=== PATIENT | female | born 1965 | race Caucasian/White ===

== ENCOUNTER → 2017-11-29 | Outpatient (CLI) | payer OTHER ==
[2017-11-29 13:02] LABS: ABSOLUTE BASOPHILS # (AUTO) 0.1 10^3/uL (0.0-0.2); ABSOLUTE EOSINOPHILS # (AUTO) 0.3 10^3/uL (0.0-0.6); ABSOLUTE LYMPHOCYTES (AUTO) 2.4 10^3/uL (0.5-4.7); ABSOLUTE MONOCYTES (AUTO) 0.5 10^3/uL (0.1-1.4); ABSOLUTE NEUT (AUTO) 5.7 10^3/uL (1.7-8.2); BASOPHILS % (AUTO) 0.7 % (0-2); EOSINOPHILS % (AUTO) 3.4 % (0-6); HEMATOCRIT 45.6 % (36.0-47.0); HEMOGLOBIN 15.4 g/dL (12.0-15.5); LYMPHOCYTES % (AUTO) 27.1 % (13-45); MEAN CORPUSCULAR HEMOGLOBIN 28.6 pg (27.0-33.4); MEAN CORPUSCULAR HGB CONC 33.8 g/dL (32.0-36.0); MEAN CORPUSCULAR VOLUME 85 fl (80-97); MONOCYTES % (AUTO) 5.2 % (3-13); PLATELET COUNT 172 10^3/uL (150-450); RED BLOOD COUNT 5.39 10^6/uL (3.72-5.28); SEGMENTED NEUTROPHILS % (AUTO) 63.6 % (42-78); TOTAL CELLS COUNTED % (AUTO) 100 %
[2017-11-29 13:21] LABS: ALANINE AMINOTRANSFERASE 43 U/L (9-52); ALBUMIN 3.9 g/dL (3.5-5.0); ALKALINE PHOSPHATASE 79 U/L (38-126); ANION GAP 10 (5-19); ASPARTATE AMINO TRANSFERASE 31 U/L (14-36); BILIRUBIN,DIRECT 0.2 mg/dL (0.0-0.4); BILIRUBIN,TOTAL 0.4 mg/dL (0.2-1.3); BLOOD UREA NITROGEN 11 mg/dL (7-20); CALCIUM 9.2 mg/dL (8.4-10.2); CARBON DIOXIDE 27 mmol/L (22-30); CHLORIDE 108 mmol/L (98-107); CREATINE KINASE 65 U/L (30-135); GLUCOSE 84 mg/dL (75-110); LIPASE 101.7 U/L (23-300); POTASSIUM 4.4 mmol/L (3.6-5.0); SODIUM 145.4 mmol/L (137-145); TOTAL PROTEIN 6.9 g/dL (6.3-8.2)
[2017-11-29 13:37] LABS: TROPONIN I < 0.012 ng/mL
== END ==
LOC: OD 12:10
PROVIDERS: ATTEND Nurse Practitioner Acute Care
DX: I10 Essential (primary) hypertension (principal); M54.5 Low back pain; R11.0 Nausea
CPT/HCPCS: 36415; 80053; 82550; 82553; 83690; 84484; 85025

== ENCOUNTER 2018-03-21 11:22 | Day surgery (SDC) | payer SELFPAY ==
[2018-03-21] MEDS ORDERED: ONDANSETRON HCL INJ/PF 4 MG/2 ML SDV ONE (12:00)
[2018-03-21] MEDS ORDERED: DIPHENHYDRAMINE HCL 50 MG/ML VIAL ONE (12:00)
[2018-03-21] MEDS ORDERED: NALOXONE HCL INJ/PF 0.4 MG/1 ML SDV ONE (12:00)
[2018-03-21] MEDS ORDERED: FLUMAZENIL INJ 0.5 MG/5 ML VIAL ONE (12:00)
[2018-03-21] MEDS ORDERED: GLUCAGON,HUMAN RECOMB 1 MG INJ ONE (12:01)
[2018-03-21] MEDS ORDERED: EPINEPHRINE INJ 1 MG/10 ML DISP.SYRIN ONE (12:01)
[2018-03-21] MEDS: MIDAZOLAM 2 MG/2 ML INJ ONE ×3 (12:18→12:23)
[2018-03-21] MEDS: FENTANYL CITRATE INJ/PF 100 MCG/2 ML AMPUL ONE ×2 (12:20→12:25)
--- NOTE | 2018-03-21 13:06 | Operative Report ---
Operative Report DATE OF SURGERY: 03/21/18 Operative Report: The risks, benefits and alternatives of the procedure including risks of bleeding, perforation requiring surgery are explained to the patient in detail and informed consent is obtained. Patient has taken back to the endoscopy suite and placed in the left, lateral decubital position. Timeout was called. Conscious sedation medications are provided. A rectal examination is done which did not reveal any masses, tears or fissures. An Olympus videoscope was inserted into the patient's rectum. The scope was then carefully advanced all the way to the cecum. The cecum was identified by the usual anatomical landmarks including the ileocecal valve as well as the appendiceal office. Photodocumentation is obtained. The scope was then sequentially pulled back via the various segments of the colon including the ascending colon, hepatic flexure, transverse colon, splenic flexure, descending colon and finally into the rectosigmoid portions of the colon. Retroflexion maneuvers performed. PREOPERATIVE DIAGNOSIS: Colorectal cancer screening POSTOPERATIVE DIAGNOSIS: Polyps noted in the ascending colon, hepatic flexure, transverse colon, and descending colon polyps which were removed via snare polypectomy. Internal hemorrhoids. 3 of the 4 polyps retrieved OPERATION: Colonoscopy with snare polypectomy SURGEON: KALINA YOO ANESTHESIA: Moderate Sedation - 6 mg of Versed, 125 mcg of fentanyl. Conscious sedation monitoring time 30 minutes. TISSUE REMOVED OR ALTERED: As noted above. COMPLICATIONS: None. ESTIMATED BLOOD LOSS: None. INTRAOPERATIVE FINDINGS: As noted above. PROCEDURE: Patient tolerated the procedure well. No immediate postprocedure complications are noted. Patient discharged in good condition. Discharge date 03/21/2018. Discharge diet: Regular. Discharge activity: Regular. 2-3 week follow-up to discuss findings. Patient is instructed call the office or proceed to the emergency room should there be any further problems or questions. Wait on the pathology. 3 year surveillance colonoscopy.
[2018-03-21 13:57] VITALS: BP 115/70
== END 2018-03-21 13:45 | disposition home or self-care (01) ==
LOC: END 11:22
PROVIDERS: ATTEND Internal Medicine Gastroenterology
DX: Z12.11 Encounter for screening for malignant neoplasm of colon (principal); D12.2 Benign neoplasm of ascending colon; D12.6 Benign neoplasm of colon, unspecified; D12.3 Benign neoplasm of transverse colon; K64.8 Other hemorrhoids; Z80.0 Family history of malignant neoplasm of digestive organs; I10 Essential (primary) hypertension; K21.9 Gastro-esophageal reflux disease without esophagitis; F17.210 Nicotine dependence, cigarettes, uncomplicated; Z79.899 Other long term (current) drug therapy; Z79.1 Long term (current) use of non-steroidal anti-inflammatories (NSAID)
CPT/HCPCS: 45385; 88305 ×2; J2250; J3010; J0171; J1200; J1610; J2310; J2405; J3490

== ENCOUNTER 2018-12-14 06:51 | Emergency (ER) | payer BC ==
--- NOTE | 2018-12-14 08:18 | RADIOLOGY REPORT (SQ) ---
EXAM DESCRIPTION: FOOT LEFT COMPLETE COMPLETED DATE/TIME: 12/14/2018 7:58 am REASON FOR STUDY: fourth toe pain secondary to injury COMPARISON: None. NUMBER OF VIEWS: Three views. TECHNIQUE: AP, lateral and oblique radiographic images acquired of the left foot. LIMITATIONS: None. FINDINGS: MINERALIZATION: Normal. BONES: Obliquely oriented fracture of the proximal aspect of the 4th proximal phalanx. No evidence o f intra-articular extension. Alignment is near anatomic. No additional fractures visualized. JOINTS: Mild midfoot degenerative change. No dislocation. SOFT TISSUES: Soft tissue swelling about the forefoot. OTHER: Superior and plantar calcaneal enthesophytes. IMPRESSION: Minimally displaced obliquely oriented fracture of the proximal aspect of the 4th proxim al phalanx. No intra-articular extension. TECHNICAL DOCUMENTATION: JOB ID: [id number] [employer]- All Rights Reserved Reading location - IP/workstation name: [email or web address]
--- NOTE | 2018-12-14 08:46 | ER Document Report ---
HPI - HPI Time Seen by Provider: 12/14/18 08:09 Pain Level: 4 Notes: Patient is a 53-year-old female with a history of hypertension who presents to the emergency department with a chief complaint of left toe pain. Patient states about 10 days ago she was cleaning her house when she moved a wooden table and stubbed her toe on the table leg. Patient states she has had some swelling to the left fourth toe. Patient has been darryl taping and using 800 mg ibuprofen with some relief. Patient sought care today to obtain an x-ray. Patient states she is able to ambulate although it does induce pain. She denies deformity. - EENT EENT: DENIES: Sore Throat, Ear Pain, Eye problems - NEURO Neurology: DENIES: Headache, Weakness, Vision blurred, Dizzinesss / Vertigo - CARDIOVASCULAR Cardiovascular: DENIES: Chest pain - RESPIRATORY Respiratory: DENIES: Trouble Breathing, Coughing - GASTROINTESTINAL Gastrointestinal: DENIES: Abdominal Pain, Black / Bloody Stools - URINARY Urinary: DENIES: Dysuria, Urgency, Frequency - REPRODUCTIVE Reproductive: DENIES: : - MUSCULOSKELETAL Musculoskeletal: REPORTS: Extremity pain - left fourth digit toe Past Medical History - General Information source: Patient - Social History Smoking Status: Unknown if Ever Smoked Frequency of alcohol use: None Drug Abuse: None Family History: Reviewed & Not Pertinent Patient has suicidal ideation: No Patient has homicidal ideation: No - Past Medical History Cardiac Medical History: Reports: Hx Hypertension Denies: Hx Coronary Artery Disease, Hx Heart Attack Pulmonary Medical History: Reports: None Denies: Hx Asthma, Hx Bronchitis, Hx COPD, Hx Pneumonia EENT Medical History: Reports: None Neurological Medical History: Reports: None. Denies: Hx Cerebrovascular Accident, Hx Seizures Endocrine Medical History: Reports: None Renal/ Medical History: Reports: None. Denies: Hx Peritoneal Dialysis Malignancy Medical History: Reports: None GI Medical History: Reports: None Musculoskeletal Medical History: Reports None, Denies Hx Arthritis Skin Medical History: Reports None Psychiatric Medical History: Reports: None Traumatic Medical History: Reports: None Infectious Medical History: Reports: None Surgical Hx: Negative Past Surgical History: Denies: Hx Hysterectomy - Immunizations Hx Diphtheria, Pertussis, Tetanus Vaccination: Yes Vertical Provider Document - CONSTITUTIONAL Notes: GENERAL: Well-appearing, well-nourished and in no acute distress. HEAD: Atraumatic, normocephalic. EYES: Pupils equal round and reactive to light, extraocular movements intact, sclera anicteric, conjunctiva are normal. ENT: TMs normal, nares patent, oropharynx clear without exudates. Moist mucous membranes. NECK: Normal range of motion, supple without lymphadenopathy or JVD. LUNGS: Breath sounds clear to auscultation bilaterally and equal. No wheezes rales or rhonchi. HEART: Regular rate and rhythm without murmurs, rubs or gallops. ABDOMEN: Soft, nontender, normoactive bowel sounds. No guarding, no rebound. No masses appreciated. BACK: No cervical, thoracic, lumbar midline tenderness. No saddle anesthesia, normal distal neurovascular exam. GENITOURINARY: Deferred. EXTREMITIES: Normal range of motion, no pitting or edema. No clubbing or cyanosis. Minimal swelling to top of left foot and left 4th digit, no bruising or obvious deformity. + flexion and extension with pain to left 4th toe, + 2 palpable dorsalis pedis pulse on left. NEUROLOGICAL: Cranial nerves II through XII grossly intact. Normal speech, normal gait. PSYCH: Normal mood, normal affect. SKIN: Warm, Dry, normal turgor, no rashes or lesions noted. - INFECTION CONTROL TRAVEL OUTSIDE OF THE [place] IN LAST 30 DAYS: No Course - Re-evaluation Re-evalutation: 12/14/18 09:05 [address]iscuss[address] results [address] Dr[address] Jose, agrees with plan to darryl tape toe and place in hard boot. Elevate extremity and limit use as much as possible while fracture heals. - Vital Signs Vital signs: Temp Pulse Resp BP Pulse Ox 98.3 F 92 18 143/96 H 95 12/14/18 06:54 12/14/18 06:54 12/14/18 06:54 12/14/18 06:54 12/14/18 06:54 Discharge - Discharge Clinical Impression: Toe fracture, left Qualifiers: Encounter type: initial encounter Toe: lesser toe Fracture type: closed Phalanx: proximal Fracture alignment: displaced Qualified Code(s): S92.512A - Displaced fracture of proximal phalanx of left lesser toe(s), initial encounter for closed fracture Condition: Stable Disposition: HOME, SELF-CARE Additional Instructions: Today you were seen in the emergency department for left foot pain. We did obtain an x-ray which showed a oblique fracture of the left fourth proximal metatarsal. The cure for this is darryl taping and a hard boot to the left foot. It can take some weeks for the fracture to heal. Keep the foot elevated. Seek medical attention for any discoloration, new numbness or tingling, or worsening foot discomfort. Continue to take Tylenol or ibuprofen as needed. Please follow-up with your primary care physician. Fractured Toe You have fractured your toe. Although this fracture doesn't need a cast or splint, emergency evaluation was needed to assess the straightness of the bones and joints. Reduction ("setting") is necessary for toe fractures which are crooked or twisted. A toe fracture will heal in about three weeks. Usually, the fractured toe is taped to the next toe. The second toe acts as a moving splint to protect the broken one. Ice and elevation help during the first 48 hours. You may need crutches at first if walking is painful. When you begin walking, be careful NOT to do things that hurt. If weight bearing is not comfortable within a few days, you may require a special shoe, walking boot, or cast. Call the doctor or return at once if severe swelling, severe pain, or numbness develop in the toe, or if you suspect you may have re-injured it. Darryl Taping Your toes have been taped together -- called "darryl taping." The good toe can act as a moving splint to protect the injured toe. You will probably need to keep the tape in place (replacing it when needed) for about three weeks. A firm shoe over the injured toes is usually a good idea. As a general rule, you shouldn't do anything which causes pain to your taped toes. Taping isn't absolute protection, so match your activity to your degree of healing. If you ever suspect that you have re-injured the toe, return for re-examination. Keep the tape dry. Constant wetness harms the skin. Some cotton between the toes may help if perspiration is a problem. Replace the tape as needed when it becomes loose, weak, or dirty. Replace the tape daily if you are sweating. If the toes swell, discolor, or become numb, loosen the tape. Return here if there are problems. Referrals: LINO HIGHTOWER, [facility] [Primary Care Provider] - Follow up as needed
[2018-12-14 09:17] VITALS: BP 149/93
== END 2018-12-14 09:16 | disposition home or self-care (01) ==
LOC: ER 06:51
DX: S92.512A Displaced fracture of proximal phalanx of left lesser toe(s), initial encounter for closed fracture (principal); M79.675 Pain in left toe(s); W22.03XA Walked into furniture, initial encounter; Y93.E9 Activity, other interior property and clothing maintenance; Y92.009 Unspecified place in unspecified non-institutional (private) residence as the place of occurrence of the external cause; I10 Essential (primary) hypertension
CPT/HCPCS: 99283

== ENCOUNTER 2018-12-20 07:38 | Emergency (ER) | payer BC ==
[2018-12-20 07:57] VITALS: BP 153/91
[2018-12-20] MEDS ORDERED: IBUPROFEN 800 MG TABLET PO ONE (08:08)
--- NOTE | 2018-12-20 08:37 | ER Document Report ---
HPI - HPI Patient complains to provider of: Right ankle pain Time Seen by Provider: 12/20/18 08:08 Onset: Just prior to arrival Onset/Duration: Sudden Severity: Severe Pain Level: 4 - Pain medication offered. Patient accepted Motrin. Reports Motrin usually helps her Context: This 53-year-old female presents to the emergency department with complaints of right ankle pain. Patient reports she stepped on a dog chew toy this morning and felt a tearing pain go from the back of her heel up her ankle. Denies previous history of injury to the ankle. Complains of severe pain with movement or touch. Associated Symptoms: None Exacerbated by: Movement, Walking Relieved by: Denies Similar symptoms previously: No Recently seen / treated by doctor: No - REPRODUCTIVE Reproductive: DENIES: : Past Medical History - General Information source: Patient - Social History Smoking Status: Current Every Day Smoker Cigarette use (# per day): Yes Frequency of alcohol use: Occasional Drug Abuse: None Occupation: base- office Family History: DM Patient has suicidal ideation: No Patient has homicidal ideation: No - Past Medical History Cardiac Medical History: Reports: Hx Hypertension Denies: Hx Coronary Artery Disease, Hx Heart Attack Pulmonary Medical History: Denies: Hx Asthma, Hx Bronchitis, Hx COPD, Hx Pneumonia Neurological Medical History: Denies: Hx Cerebrovascular Accident, Hx Seizures Renal/ Medical History: Denies: Hx Peritoneal Dialysis GI Medical History: Reports: Hx Gastroesophageal Reflux Disease Musculoskeletal Medical History: Denies Hx Arthritis Psychiatric Medical History: Reports: Hx Depression Surgical Hx: Negative Past Surgical History: Denies: Hx Hysterectomy - Immunizations Hx Diphtheria, Pertussis, Tetanus Vaccination: Yes Vertical Provider Document - CONSTITUTIONAL Agree With Documented VS: Yes Exam Limitations: No Limitations General Appearance: WD/WN, Mild Distress - winces when ankle palpated - INFECTION CONTROL TRAVEL OUTSIDE OF THE [place] IN LAST 30 DAYS: No - HEENT HEENT: Atraumatic, Normocephalic - NECK Neck: Supple - RESPIRATORY Respiratory: No Respiratory Distress - CARDIOVASCULAR Cardiovascular: Regular Rate - MUSCULOSKELETAL/EXTREMETIES Musculoskeletal/Extremeties: Tender - right ankle posterior ttp, no obvious deformity, no swelling/no ecchymosis, can flex/extend foot with c/o pain good cap refill, good pedal pulse - NEURO Level of Consciousness: Awake, Alert, Appropriate Motor/Sensory: No Motor Deficit - DERM Integumentary: Warm, Dry Adult Front & Back Diagram: 1 - c/o pain very ttp Course - Re-evaluation Re-evalutation: 12/20/18 09:09 Dr. Tate the radiologist is on the phone. Reports found shows the patient has had almost a full-thickness Achilles tendon tear. Advising MRI after discussing with orthopedic. Attempted to contact Dr. Tsai but he is in the OR. MRI ordered. 924-Dr. Tsai returned call. Updated on patient status. Reports patient can follow-up with him in the office tomorrow. 12/20/18 09:51 Patient updated on all results. Patient waiting for the MRI. She reports that she has a problem with claustrophobic. Ativan ordered. 12/20/18 MRI shows full-thickness tear right Achilles tendon 3 cm proximal to the calcaneal insertion. Patient was instructed on results of MRI. Patient reports that she is got in contact with Dr. Tsai's office and they will be make an appointment with Dr. Jovel for her. Dictation of this chart was performed using voice recognition software; therefore, there may be some unintended grammatical errors. - Vital Signs Vital signs: Temp Pulse Resp BP Pulse Ox 98.1 F 78 18 153/91 H 96 12/20/18 07:56 12/20/18 07:56 12/20/18 07:56 12/20/18 07:56 12/20/18 07:56 - Diagnostic Test Radiology reviewed: Image reviewed, Reports reviewed - EXAM DESCRIPTION: MRI RT LOWER EXTREMITY WITHOUT COMPLETED DATE/TIME: 12/20/2018 10:49 am REASON FOR STUDY: achilles tear eval COMPARISON: Achilles tendon ultrasound 12/20/2018 TECHNIQUE: Right ankle images acquired and stored on PACS. Multiplanar images include fat sensitive sequences as T1, fluid sensitive sequences as FST2/STIR, cartilage sensitive sequences as FSPD, and gradient echo sequences. LIMITATIONS: None. FINDINGS: There is a full-thickness Achilles tendon tear 3 cm proximal to the calcaneal attachment. This is best shown on sagittal image 9 and coronal images 23-25. The muscular tendinous junction is normal. The calcaneal attachment of the Achilles tendon is normal. BONE MARROW: No alteration of signal to suggest marrow replacement or edema. No occult fracture. No large osteophytes. EFFUSIONS: There is a small tibiotalar joint effusion, and a small subtalar joint effusion OSSEOUS ARTICULATIONS: Normal tibiotalar, subtalar, talonavicular and calcaneocuboid joints. TALAR DOME AND TIBIAL PLAFOND: Normal cartilage. No osteochondral defect. ACHILLES TENDON: Intact without partial or full-thickness tear. No adjacent bursal fluid or edema. TIBIALIS ANTERIOR TENDON: Intact without edema at the 1st MT attachment. TIBIALIS POSTERIOR TENDON: Normal morphology and no edema at the navicular attachment. No tendon sheath fluid. FLEXOR HALLUCIS LONGUS AND FLEXOR DIGITORUM TENDONS: Normal morphology and no tendon sheath fluid. No edema of the os trigonum. PERONEUS LONGUS AND BREVIS TENDON: Normal morphology and no tendon sheath fluid. No subluxation. ATFL, CFL, PTFL: Intact. No thickening or signal alteration. No rosetta-ligamentous fluid. DELTOID LIGAMENT: Visualized components intact. TARSAL TUNNEL: No masses. No muscle atrophy. SINUS TARSI: No fluid. No reactive marrow edema or erosions. PLANTAR FASCIA: No signal alteration or tear. ADJACENT SOFT TISSUES: No masses. OTHER: No other significant finding. IMPRESSION: Full-thickness tear, right Achilles tendon 3 cm proximal to the calcaneal insertion EXAM DESCRIPTION: ANKLE RIGHT COMPLETE COMPLETED DATE/TIME: 12/20/2018 8:29 am REASON FOR STUDY: right posterior ankle, achilles eval COMPARISON: None. NUMBER OF VIEWS: Three views. TECHNIQUE: AP, lateral, and oblique radiographic images acquired of the right ankle. LIMITATIONS: None. FINDINGS: MINERALIZATION: Normal. BONES: No acute fracture or dislocation. Calcaneal spurs. JOINTS: No effusions. SOFT TISSUES: A few small calcific densities in the posterior soft tissues may be related to prior trauma. OTHER: No other significant finding. IMPRESSION: 1. No acute osseous findings. COMPLETED DATE/TIME: 12/20/2018 9:16 am REASON FOR STUDY: right posterior ankle, achilles eval COMPARISON: None. TECHNIQUE: Ultrasound of the bilateral Achilles tendons was performed by both myself as well as the technologist. Grayscale, cine loop and color flow images were obtained. LIMITATIONS: None. FINDINGS: On the right side, a full-thickness tear of Achilles tendon is present about 2 to 3 cm from the distal calcaneal attachment. There is disruption of the Achilles tendon with a full- thickness tear and proximal retraction. Gap in the tendon about 3 cm. The right sided musculotendinous junction of the Achilles tendon is intact. No soft tissue hematoma. Comparison imaging of the left Achilles tendon is normal IMPRESSION: Full-thickness right distal Achilles tendon tear, about 2 to 3 cm from the distal attachment. Procedures - Immobilization Right Ankle Pre-Proc Neuro Vasc Exam: Normal Immobilizer type: Posterior ankle - plantar flexion Performed by: NATTY bertrand Post-Proc Neuro Vasc Exam: Unchanged from pre-exam Alignment checked and good: Yes Discharge - Discharge Clinical Impression: Right ankle pain Qualifiers: Chronicity: acute Qualified Code(s): M25.571 - Pain in right ankle and joints of right foot Achilles rupture, right Qualifiers: Encounter type: initial encounter Qualified Code(s): S86.011A - Strain of right Achilles tendon, initial encounter Condition: Stable Disposition: HOME, SELF-CARE Instructions: Achilles Tendon Rupture ([facility]), Use of Crutches ([facility]), Ice & Elevation ([facility]), Splint Pending Casting ([facility]) Additional Instructions: *You have been evaluated for right ankle pain, Achilles tendon full-thickness tear *Maintain the splint, no weight bearing, use your crutches *Rest/Ice/Elevate *Follow up with orthopedics as scheduled *Take medication as prescribed *Return to ED for worsening condition, changes, needs Monitor your blood pressure. Your blood pressure was elevated today. This may be because you were anxious, in pain or because you need medication. It is important to follow up with your primary care provider for full evaluation. Prescriptions: Ibuprofen [Motrin 800 mg Tablet] 800 mg PO TID #30 tablet Forms: Elevated Blood Pressure, Return to Work Referrals: LINO HIGHTOWER, VICK-C [Primary Care Provider] - Follow up as needed DHAVAL CORNELIUS MD [ACTIVE STAFF] - 12/20/18 (contact office to confirm appointment)
--- NOTE | 2018-12-20 08:44 | RADIOLOGY REPORT (SQ) ---
EXAM DESCRIPTION: ANKLE RIGHT COMPLETE COMPLETED DATE/TIME: 12/20/2018 8:29 am REASON FOR STUDY: right posterior ankle, achilles eval COMPARISON: None. NUMBER OF VIEWS: Three views. TECHNIQUE: AP, lateral, and oblique radiographic images acquired of the right ankle. LIMITATIONS: None. FINDINGS: MINERALIZATION: Normal. BONES: No acute fracture or dislocation. Calcaneal spurs. JOINTS: No effusions. SOFT TISSUES: A few small calcific densities in the posterior soft tissues may be related to prior t rauma. OTHER: No other significant finding. IMPRESSION: 1. No acute osseous findings. TECHNICAL DOCUMENTATION: JOB ID: [id number] [employer]- All Rights Reserved Reading location - IP/workstation name: [email or web address]
--- NOTE | 2018-12-20 09:28 | RADIOLOGY REPORT (SQ) ---
EXAM DESCRIPTION: U/S EXTREMITY NONVASCULAR COMP COMPLETED DATE/TIME: 12/20/2018 9:16 am REASON FOR STUDY: right posterior ankle, achilles eval COMPARISON: None. TECHNIQUE: Ultrasound of the bilateral Achilles tendons was performed by both myself as well as the technologist. Grayscale, cine loop and color flow images were obtained. LIMITATIONS: None. FINDINGS: On the right side, a full-thickness tear of Achilles tendon is present about 2 to 3 cm fro m the distal calcaneal attachment. There is disruption of the Achilles tendon with a full-thickness tear and proximal retraction. Gap in the tendon about 3 cm. The right sided musculotendinous juncti on of the Achilles tendon is intact. No soft tissue hematoma. Comparison imaging of the left Achilles tendon is normal IMPRESSION: Full-thickness right distal Achilles tendon tear, about 2 to 3 cm from the distal attach ment. TECHNICAL DOCUMENTATION: JOB ID: [id number] [employer]- All Rights Reserved Reading location - IP/workstation name: [email or web address]
[2018-12-20] MEDS ORDERED: LORAZEPAM 0.5 MG TABLET PO ONE (09:51)
--- NOTE | 2018-12-20 11:08 | RADIOLOGY REPORT (SQ) ---
EXAM DESCRIPTION: MRI RT LOWER EXTREMITY WITHOUT COMPLETED DATE/TIME: 12/20/2018 10:49 am REASON FOR STUDY: achilles tear eval COMPARISON: Achilles tendon ultrasound 12/20/2018 TECHNIQUE: Right ankle images acquired and stored on PACS. Multiplanar images include fat sensitive sequences as T1, fluid sensitive sequences as FST2/STIR, cartilage sensitive sequences as FSPD, and g radient echo sequences. LIMITATIONS: None. FINDINGS: There is a full-thickness Achilles tendon tear 3 cm proximal to the calcaneal attachment. This is best shown on sagittal image 9 and coronal images 23-25. The muscular tendinous junction is normal. The calcaneal attachment of the Achilles tendon is normal . BONE MARROW: No alteration of signal to suggest marrow replacement or edema. No occult fracture. No l arge osteophytes. EFFUSIONS: There is a small tibiotalar joint effusion, and a small subtalar joint effusion OSSEOUS ARTICULATIONS: Normal tibiotalar, subtalar, talonavicular and calcaneocuboid joints. TALAR DOME AND TIBIAL PLAFOND: Normal cartilage. No osteochondral defect. ACHILLES TENDON: Intact without partial or full-thickness tear. No adjacent bursal fluid or edema. TIBIALIS ANTERIOR TENDON: Intact without edema at the 1st MT attachment. TIBIALIS POSTERIOR TENDON: Normal morphology and no edema at the navicular attachment. No tendon sweeney th fluid. FLEXOR HALLUCIS LONGUS AND FLEXOR DIGITORUM TENDONS: Normal morphology and no tendon sheath fluid. No edema of the os trigonum. PERONEUS LONGUS AND BREVIS TENDON: Normal morphology and no tendon sheath fluid. No subluxation. ATFL, CFL, PTFL: Intact. No thickening or signal alteration. No rosetta-ligamentous fluid. DELTOID LIGAMENT: Visualized components intact. TARSAL TUNNEL: No masses. No muscle atrophy. SINUS TARSI: No fluid. No reactive marrow edema or erosions. PLANTAR FASCIA: No signal alteration or tear. ADJACENT SOFT TISSUES: No masses. OTHER: No other significant finding. IMPRESSION: Full-thickness tear, right Achilles tendon 3 cm proximal to the calcaneal insertion TECHNICAL DOCUMENTATION: JOB ID: [id number] [employer]- All Rights Reserved Reading location - IP/workstation name: [email or web address]
== END 2018-12-20 13:02 | disposition home or self-care (01) ==
LOC: ER 07:38
DX: S86.011A Strain of right Achilles tendon, initial encounter (principal); M25.571 Pain in right ankle and joints of right foot; W22.09XA Striking against other stationary object, initial encounter; F17.210 Nicotine dependence, cigarettes, uncomplicated; I10 Essential (primary) hypertension
CPT/HCPCS: 76881; 99284

== ENCOUNTER → 2019-06-22 | Outpatient (CLI) | payer BC ==
[2019-06-22 09:49] LABS: ABSOLUTE BASOPHILS # (AUTO) 0.1 10^3/uL (0.0-0.2); ABSOLUTE EOSINOPHILS # (AUTO) 0.2 10^3/uL (0.0-0.6); ABSOLUTE LYMPHOCYTES (AUTO) 2.6 10^3/uL (0.5-4.7); ABSOLUTE MONOCYTES (AUTO) 0.6 10^3/uL (0.1-1.4); ABSOLUTE NEUT (AUTO) 7.1 10^3/uL (1.7-8.2); BASOPHILS % (AUTO) 0.9 % (0-2); EOSINOPHILS % (AUTO) 1.6 % (0-6); HEMATOCRIT 47.9 % (36.0-47.0); HEMOGLOBIN 16.2 g/dL (12.0-15.5); LYMPHOCYTES % (AUTO) 24.7 % (13-45); MEAN CORPUSCULAR HEMOGLOBIN 27.8 pg (27.0-33.4); MEAN CORPUSCULAR HGB CONC 33.8 g/dL (32.0-36.0); MEAN CORPUSCULAR VOLUME 82 fl (80-97); MONOCYTES % (AUTO) 5.3 % (3-13); PLATELET COUNT 235 10^3/uL (150-450); RED BLOOD COUNT 5.82 10^6/uL (3.72-5.28); RED CELL DISTRIBUTION WIDTH 14.8 % (11.5-14.0); SEGMENTED NEUTROPHILS % (AUTO) 67.5 % (42-78); TOTAL CELLS COUNTED % (AUTO) 100 %; WHITE BLOOD COUNT 10.5 10^3/uL (4.0-10.5)
== END ==
LOC: OD 09:03
PROVIDERS: ATTEND Orthopaedic Surgery
DX: R22.41 Localized swelling, mass and lump, right lower limb (principal)
CPT/HCPCS: 36415; 85025; 85652; 86140

== ENCOUNTER 2019-08-19 13:42 | Emergency (ER) | payer BC ==
[2019-08-19 13:48] VITALS: BP 136/96
--- NOTE | 2019-08-19 14:09 | ER Document Report ---
ED Medical Screen (RME) - General Stated Complaint: PIC LINE ISSUES Time Seen by Provider: 08/19/19 14:00 Primary Care Provider: LINO HIGHTOWER FNP-C [Primary Care Provider] - Follow up as needed Mode of Arrival: Ambulatory Information source: Patient Notes: Patient states that she attempted to flush her PICC line and was unable to flush any saline or draw blood off. Patient is receiving daptomycin IV for a foot wound infection. Patient states PICC line was placed 4 days ago. I have greeted and performed a rapid initial assessment of this patient. A comprehensive ED assessment and evaluation of the patient, analysis of test results and completion of the medical decision making process will be conducted by additional ED providers. TRAVEL OUTSIDE OF THE [place] IN LAST 30 DAYS: No - Related Data Allergies/Adverse Reactions: amoxicillin Allergy (Mild, Verified 12/20/18 07:52) ITCHING Past Medical History - Past Medical History Cardiac Medical History: Reports: Hx Hypertension Denies: Hx Coronary Artery Disease, Hx Heart Attack Pulmonary Medical History: Denies: Hx Asthma, Hx Bronchitis, Hx COPD, Hx Pneumonia Neurological Medical History: Denies: Hx Cerebrovascular Accident, Hx Seizures Renal/ Medical History: Denies: Hx Peritoneal Dialysis GI Medical History: Reports: Hx Gastroesophageal Reflux Disease Musculoskeltal Medical History: Denies Hx Arthritis Psychiatric Medical History: Reports: Hx Depression Past Surgical History: Denies: Hx Hysterectomy - Immunizations Hx Diphtheria, Pertussis, Tetanus Vaccination: Yes Physical Exam - Vital signs Vitals: Temp Pulse Resp BP Pulse Ox 98.2 F 72 20 136/96 H 98 08/19/19 13:46 08/19/19 13:46 08/19/19 13:46 08/19/19 13:46 08/19/19 13:46 - General General appearance: Appears well, Alert In distress: None Notes: PICC line to R arm Course - Vital Signs Vital signs: Temp Pulse Resp BP Pulse Ox 98.2 F 72 20 136/96 H 98 08/19/19 13:46 08/19/19 13:46 08/19/19 13:46 08/19/19 13:46 08/19/19 13:46 Doctor's Discharge - Discharge Referrals: LINO HIGHTOWER FNP-C [Primary Care Provider] - Follow up as needed
--- NOTE | 2019-08-19 16:29 | ER Document Report ---
ED General - General Chief Complaint: Medical Complaint Stated Complaint: PIC LINE ISSUES Time Seen by Provider: 08/19/19 14:00 Primary Care Provider: LINO HIGHTOWER FNP-C [Primary Care Provider] - Follow up as needed Mode of Arrival: Ambulatory Notes: 54-year-old woman presents to the emergency department after history of infection involving her right foot. She has a PICC line and is receiving IV antibiotics every 24 hours. Apparently she was unable to flush the line today. She presents to the hospital for evaluation of the PICC line. Patient states she has been using saline flush, no heparin at home. TRAVEL OUTSIDE OF THE [place] IN LAST 30 DAYS: No - Related Data Allergies/Adverse Reactions: amoxicillin Allergy (Mild, Verified 12/20/18 07:52) ITCHING Past Medical History - General Information source: Patient - Social History Smoking Status: Current Every Day Smoker Frequency of alcohol use: None Drug Abuse: None Family History: DM Patient has suicidal ideation: No Patient has homicidal ideation: No - Past Medical History Cardiac Medical History: Reports: Hx Hypertension Denies: Hx Coronary Artery Disease, Hx Heart Attack Pulmonary Medical History: Denies: Hx Asthma, Hx Bronchitis, Hx COPD, Hx Pneumonia Neurological Medical History: Denies: Hx Cerebrovascular Accident, Hx Seizures Renal/ Medical History: Denies: Hx Peritoneal Dialysis GI Medical History: Reports: Hx Gastroesophageal Reflux Disease Musculoskeletal Medical History: Denies Hx Arthritis Psychiatric Medical History: Reports: Hx Depression Past Surgical History: Denies: Hx Hysterectomy - Immunizations Hx Diphtheria, Pertussis, Tetanus Vaccination: Yes Review of Systems - Review of Systems Notes: Constitutional: Negative for fever. HENT: Negative for sore throat. Eyes: Negative for visual changes. Cardiovascular: Negative for chest pain. Respiratory: Negative for shortness of breath. Gastrointestinal: Negative for abdominal pain, vomiting or diarrhea. Genitourinary: Negative for dysuria. Musculoskeletal: + Walking boot right lower extremity Skin: Negative for rash. Neurological: Negative for headaches, weakness or numbness. 10 point ROS negative except as marked above and in HPI. Physical Exam - Vital signs Vitals: Temp Pulse Resp BP Pulse Ox 98.2 F 72 20 136/96 H 98 08/19/19 13:46 08/19/19 13:46 08/19/19 13:46 08/19/19 13:46 08/19/19 13:46 - Notes Notes: PHYSICAL EXAMINATION: Physical Exam: General: Well-nourished well-developed overweight woman in no acute distress HEENT: NC/AT, pupils equal round and reactive to light, MM moist,nares clear Neck: supple, no adenopathy, no masses. Lungs: clear, no wheezing, no rales no rhonchi CVS: Regular rate and rhythm no murmur gallop or rub Abdomen: Soft active nontender, no masses, no hepatosplenomegaly Ext: PICC line right upper extremity, walking boot right lower extremity Neuro: Alert and responsive, moving all 4 extremities on command, cranial nerves intact. Skin: Intact no open lesions, no rash PSYCH: Normal mood, normal affect. Course - Re-evaluation Re-evalutation: 08/19/19 16:31 Patient with obstructed PICC line right upper extremity, I am in the process of acquiring TNKase protocol used at [facility] for obstructed line access. The charge nurse and found that information important to me and while ordering the TNKase, I was told that the patient had eloped from the emergency department. - Vital Signs Vital signs: Temp Pulse Resp BP Pulse Ox 98.2 F 72 20 136/96 H 98 08/19/19 13:46 08/19/19 13:46 08/19/19 13:46 08/19/19 13:46 08/19/19 13:46 Discharge - Discharge Clinical Impression: Occlusion of peripherally inserted central catheter (PICC) line Qualifiers: Encounter type: initial encounter Qualified Code(s): T82.898A - Other specified complication of vascular prosthetic devices, implants and grafts, initial encounter Condition: Good Disposition: ELOPED Referrals: LINO HIGHTOWER FNP-C [Primary Care Provider] - Follow up as needed
== END 2019-08-19 16:20 | disposition left against medical advice (07) ==
LOC: ER 13:42
DX: T82.898A Other specified complication of vascular prosthetic devices, implants and grafts, initial encounter (principal); L08.9 Local infection of the skin and subcutaneous tissue, unspecified; F17.200 Nicotine dependence, unspecified, uncomplicated; I10 Essential (primary) hypertension
CPT/HCPCS: 99281